=== PATIENT | female | born 1945 | race Two or more races ===

== ENCOUNTER 2023-06-29 08:32 | Inpatient (IN) | payer OTHER ==
[2023-06-27 15:49] VITALS: BMI 33.9
[2023-06-29] MEDS ORDERED: MECLIZINE HCL 25 MG TABLET (FP) PO PRN (11:43)
[2023-06-29] MEDS ORDERED: MIDAZOLAM HCL 2 MG/2 ML SINGLE DOSE VIAL ONE (11:58)
[2023-06-29] MEDS ORDERED: BUPIVACAINE LIPOSOME/PF (EXPAREL) 266 MG/20 ML VIAL ONE (11:58)
[2023-06-29] MEDS ORDERED: BUPIVACAINE HCL/PF 0.5% (5 MG/ML) 30 ML VIAL IJ ONE (11:58)
[2023-06-29] MEDS ORDERED: SODIUM CHLORIDE 0.9% P/F 10 ML VIAL IJ ONE (12:02)
[2023-06-29] MEDS ORDERED: SUCCINYLCHOLINE CHLORIDE 200 MG/10 ML SYRINGE ONE (12:20)
[2023-06-29] MEDS ORDERED: PROPOFOL 20 ML ONE ×3 (12:20→16:28)
[2023-06-29] MEDS ORDERED: HYDROmorphone HCL/PF 1 MG/ML VIAL ONE ×2 (14:08→15:09)
[2023-06-29] MEDS ORDERED: MAGNESIUM SULF 50% (8.12 MEQ/2 ML-1 GM VIAL) ONE (16:32)
[2023-06-29] MEDS ORDERED: LACTATED RINGERS SOLUTION 1,000 ML IV SCH ×2 (16:45→17:30)
[2023-06-29] MEDS ORDERED: MAGNESIUM HYDROX 2400MG/30ML ORAL SUSPENSION 30 ML CUP PO PRN (16:45)
[2023-06-29] MEDS ORDERED: ONDANSETRON 4 MG/2 ML VIAL IVPUSH PRN ×2 (16:45→17:28)
[2023-06-29] MEDS ORDERED: MAG HYDROX/AL HYDROX/SIMETH 30 ML UNIT-DOSE CUP PO PRN (16:45)
[2023-06-29] MEDS ORDERED: oxyCODONE HCL 5 MG TABLET PO PRN (17:30)
[2023-06-29] MEDS ORDERED: ACETAMINOPHEN 325 MG TABLET (FP) ONE (17:49)
[2023-06-29] MEDS: ACETAMINOPHEN 325 MG TABLET (FP) PO PRN (17:51)
[2023-06-29] MEDS: SENNOSIDES/DOCUSATE COMBO (SENNA PLUS) TABLET (UD) PO SCH (21:09)
[2023-06-29] MEDS: CELECOXIB 100 MG CAPSULE PO SCH (21:09)
[2023-06-29] MEDS: ASPIRIN COATED 81 MG TABLET.EC PO SCH (21:09)
[2023-06-29] MEDS: GABAPENTIN 300 MG CAPSULE PO SCH (21:10)
[2023-06-29] MEDS: CEFAZOLIN SODIUM 2 GM in DEXTROSE 5%-WATER 100 ML IVPB SCH (21:11)
[2023-06-29] MEDS ORDERED: ASPIRIN 325 MG TABLET PO SCH (22:00)
[2023-06-29] MEDS ORDERED: CELECOXIB 200 MG CAPSULE PO SCH (22:00)
[2023-06-30] MEDS: CEFAZOLIN SODIUM 2 GM in DEXTROSE 5%-WATER 100 ML IVPB SCH ×2 (02:57→08:42)
[2023-06-30 08:51] LABS: HEMATOCRIT 34.1 % (32.4-45.2); MCH 29.5 pg (25.7-33.7); MCHC 32.1 g/dl (32.0-36.0); MEAN CELL VOLUME 91.8 fl (80-96); MEAN PLT VOLUME 9.2 fl (7.5-11.1); PLATELET COUNT 237.7 10^3/uL (134-434); RBC 3.71 10^6/uL (3.60-5.2); RDW 16.2 % (11.6-15.6); WHITE BLOOD COUNT 9.5 10^3/uL (4.0-10.8)
[2023-06-30 09:20] LABS: BLOOD UREA NITROGEN 25.4 mg/dl (7-18); CALCIUM 8.2 mg/dl (8.5-10.1); POTASSIUM 3.1 mmol/L (3.5-5.1)
[2023-06-30] MEDS: SENNOSIDES/DOCUSATE COMBO (SENNA PLUS) TABLET (UD) PO SCH ×2 (09:35→21:49)
[2023-06-30] MEDS: ASPIRIN COATED 81 MG TABLET.EC PO SCH ×2 (09:35→21:49)
[2023-06-30] MEDS: GABAPENTIN 300 MG CAPSULE PO SCH ×2 (09:35→21:48)
[2023-06-30] MEDS: oxyCODONE HCL 5 MG TABLET PO PRN ×2 (09:35→21:48)
[2023-06-30] MEDS: CELECOXIB 100 MG CAPSULE PO SCH ×2 (09:35→21:49)
[2023-06-30] MEDS: PANTOPRAZOLE 40 MG TABLET PO SCH (09:36)
[2023-06-30] MEDS: ACETAMINOPHEN 325 MG TABLET (FP) PO PRN ×2 (09:36→21:49)
[2023-06-30] MEDS: CHLORTHALIDONE 25 MG TABLET PO SCH (09:52)
[2023-06-30] MEDS: LOSARTAN POTASSIUM 50 MG TABLET PO SCH (09:52)
[2023-06-30] MEDS ORDERED: POTASSIUM CHLORIDE ORAL LIQUID 20 MEQ/15 ML PO ONE (12:30)
[2023-07-01] MEDS: ACETAMINOPHEN 325 MG TABLET (FP) PO PRN ×2 (06:31→21:45)
[2023-07-01 07:51] LABS: HEMATOCRIT 30.5 % (32.4-45.2); HEMOGLOBIN 9.9 G/dL (10.7-15.3); MCH 29.7 pg (25.7-33.7); MCHC 32.4 g/dl (32.0-36.0); MEAN CELL VOLUME 91.5 fl (80-96); MEAN PLT VOLUME 8.8 fl (7.5-11.1); PLATELET COUNT 202.8 10^3/uL (134-434); RBC 3.33 10^6/uL (3.60-5.2); RDW 15.6 % (11.6-15.6); WHITE BLOOD COUNT 8.6 10^3/uL (4.0-10.8)
[2023-07-01] MEDS: SENNOSIDES/DOCUSATE COMBO (SENNA PLUS) TABLET (UD) PO SCH ×2 (09:42→21:49)
[2023-07-01] MEDS: PANTOPRAZOLE 40 MG TABLET PO SCH (09:42)
[2023-07-01] MEDS: ASPIRIN COATED 81 MG TABLET.EC PO SCH ×2 (09:42→21:47)
[2023-07-01] MEDS: CELECOXIB 100 MG CAPSULE PO SCH ×2 (09:42→21:45)
[2023-07-01] MEDS: oxyCODONE HCL 5 MG TABLET PO PRN ×2 (09:43→21:47)
[2023-07-01] MEDS: GABAPENTIN 300 MG CAPSULE PO SCH ×2 (10:52→21:45)
[2023-07-01] MEDS: CHLORTHALIDONE 25 MG TABLET PO SCH (10:52)
[2023-07-01] MEDS: LOSARTAN POTASSIUM 50 MG TABLET PO SCH (10:52)
[2023-07-02 02:09] VITALS: RESP 18
[2023-07-02] MEDS: oxyCODONE HCL 5 MG TABLET PO PRN ×2 (08:53→14:21)
[2023-07-02] MEDS: ACETAMINOPHEN 325 MG TABLET (FP) PO PRN ×2 (08:53→14:21)
[2023-07-02] MEDS: CELECOXIB 100 MG CAPSULE PO SCH (09:29)
[2023-07-02] MEDS: ASPIRIN COATED 81 MG TABLET.EC PO SCH (09:29)
[2023-07-02] MEDS: GABAPENTIN 300 MG CAPSULE PO SCH (09:29)
[2023-07-02] MEDS: SENNOSIDES/DOCUSATE COMBO (SENNA PLUS) TABLET (UD) PO SCH ×2 (09:29→09:33)
[2023-07-02] MEDS: PANTOPRAZOLE 40 MG TABLET PO SCH (09:29)
[2023-07-02] MEDS: CHLORTHALIDONE 25 MG TABLET PO SCH (09:33)
[2023-07-02] MEDS: LOSARTAN POTASSIUM 50 MG TABLET PO SCH (09:33)
[2023-07-02 14:23] VITALS: BP 141/55; PULSE 80; TEMP 98.4
== END 2023-07-02 15:00 | disposition home or self-care (01) | DRG 468 ==
LOC: FM/S 08:32
PROVIDERS: ADMIT Orthopaedic Surgery Orthopaedic Surgery of the Spine; ATTEND Orthopaedic Surgery Orthopaedic Surgery of the Spine
PROC: 0SRC0J9 Replacement of Right Knee Joint with Synthetic Substitute, Cemented, Open Approach (ICD-10-PCS; 2023-06-29)
PROC: 0SBC0ZZ Excision of Right Knee Joint, Open Approach (ICD-10-PCS; 2023-06-29)
PROC: 0MNN0ZZ Release Right Knee Bursa and Ligament, Open Approach (ICD-10-PCS; 2023-06-29)
PROC: 0SPC0JZ Removal of Synthetic Substitute from Right Knee Joint, Open Approach (ICD-10-PCS; principal; 2023-06-29 13:18)
DX: T84.89XA Other specified complication of internal orthopedic prosthetic devices, implants and grafts, initial encounter (principal); I10 Essential (primary) hypertension; E78.5 Hyperlipidemia, unspecified; Y83.8 Other surgical procedures as the cause of abnormal reaction of the patient, or of later complication, without mention of misadventure at the time of the procedure
CPT/HCPCS: 36415; 73560-TC-RT-FY; 80048; 85027; 86850; 86900; 86901; 88304-TC; 88305-TC; 88311-TC; 94760; 97010-GP; 97116-GP; 97162-GP; C1713; C1776

== ENCOUNTER 2023-08-21 00:09 | Day surgery (SDC) | payer OTHER ==
[2023-08-21] MEDS ORDERED: ONDANSETRON 4 MG/2 ML VIAL IVPUSH ONE (01:30)
[2023-08-21] MEDS ORDERED: ACETAMINOPHEN 1000 MG/100 ML BAG IVPB ONE (01:30)
[2023-08-21] MEDS ORDERED: FAMOTIDINE 20 MG/50 ML IVPB 20 MG/50 ML MG IVPB ONE ×2 (01:30→01:59)
[2023-08-21] MEDS ORDERED: MAG HYDROX/AL HYDROX/SIMETH 30 ML UNIT-DOSE CUP PO ONE (01:30)
[2023-08-21] MEDS ORDERED: ACETAMINOPHEN INJECTION 100 ML IVPB ONE (01:58)
[2023-08-21] MEDS ORDERED: ONDANSETRON 4 MG/2 ML VIAL ONE (01:59)
[2023-08-21] MEDS ORDERED: MAG HYDROX/AL HYDROX/SIMETH 30 ML UNIT-DOSE CUP ONE (01:59)
[2023-08-21 02:43] LABS: HEMATOCRIT 34.1 % (32.4-45.2); HEMOGLOBIN 11.1 GM/dL (10.7-15.3); MCH 27.6 pg (25.7-33.7); MCHC 32.5 g/dl (32.0-36.0); MEAN PLT VOLUME 8.5 fl (7.5-11.1); PLATELET COUNT 189 10^3/uL (134-434); RBC 4.01 M/mm3 (3.60-5.2); RDW 17.2 % (11.6-15.6); WHITE BLOOD COUNT 7.5 K/mm3 (4.0-10.0)
[2023-08-21 02:56] LABS: INR 1.05 (0.83-1.09); PROTHROMBIN TIME (PATIENT) 12.2 SEC (9.7-13.0)
[2023-08-21 02:58] LABS: ACTIVATED PTT 19.3 SECONDS (25.2-36.5)
[2023-08-21 03:05] LABS: POTASSIUM 4.4 mmol/L (3.5-5.1)
[2023-08-21 03:08] LABS: ALBUMIN 3.4 g/dl (3.4-5.0); BLOOD UREA NITROGEN 23.1 mg/dL (7-18); CALCIUM 9.1 mg/dL (8.5-10.1)
[2023-08-21 03:16] LABS: BILIRUBIN,TOTAL 0.7 mg/dL (0.2-1)
[2023-08-21] MEDS ORDERED: PIPERACILLIN/TAZOB 3.375 GM 3.375 GM in DEXTROSE 5%-WATER - 50 ML IVPB ONE (04:06)
[2023-08-21] MEDS ORDERED: PIPERACILLIN/TAZOB 3.375 GM 3.375 GM/50 ML BAG IVPB ONE (04:09)
[2023-08-21] MEDS ORDERED: LACTATED RINGERS SOLUTION 1,000 ML/1,000 ML INFUS.BAG IV SCH (06:15)
[2023-08-21] MEDS ORDERED: ACETAMINOPHEN 1000 MG/100 ML BAG IVPB PRN (10:21)
[2023-08-21] MEDS ORDERED: ONDANSETRON 4 MG/2 ML VIAL IVPUSH PRN (10:22)
[2023-08-21] MEDS: LACTATED RINGERS SOLUTION 1,000 ML/1,000 ML INFUS.BAG IV SCH (11:11)
[2023-08-21 13:16] VITALS: BMI 34.3
[2023-08-21] MEDS: AMPICILLIN NA/SULBACTAM NA 3 GM in SODIUM CHLORIDE 100 ML IVPB SCH (17:29)
[2023-08-22] MEDS: AMPICILLIN NA/SULBACTAM NA 3 GM in SODIUM CHLORIDE 100 ML IVPB SCH ×2 (01:43→09:57)
[2023-08-22 09:30] LABS: BASO % 1.6 % (0-2.0); EOS % 4.2 % (0-4.5); HEMATOCRIT 35.1 % (32.4-45.2); HEMOGLOBIN 11.1 GM/dL (10.7-15.3); LYMPH % 23.4 % (8-40); MCH 26.5 pg (25.7-33.7); MCHC 31.6 g/dl (32.0-36.0); MEAN CELL VOLUME 83.9 fl (80-96); MEAN PLT VOLUME 8.1 fl (7.5-11.1); MONO % 7.4 % (3.8-10.2); NEUT % 63.4 % (42.8-82.8); PLATELET COUNT 310 10^3/uL (134-434); RBC 4.18 M/mm3 (3.60-5.2); RDW 17.4 % (11.6-15.6); WHITE BLOOD COUNT 6.7 K/mm3 (4.0-10.0)
[2023-08-22 09:57] LABS: POTASSIUM 4.3 mmol/L (3.5-5.1)
[2023-08-22] MEDS: LACTATED RINGERS SOLUTION 1,000 ML/1,000 ML INFUS.BAG IV SCH ×2 (09:58→15:28)
[2023-08-22] MEDS ORDERED: LOSARTAN POTASSIUM 25 MG TABLET PO SCH (10:00)
[2023-08-22 10:13] LABS: CALCIUM 9.3 mg/dL (8.5-10.1)
[2023-08-22 10:14] LABS: ALBUMIN 3.2 g/dl (3.4-5.0); BLOOD UREA NITROGEN 18.2 mg/dL (7-18)
[2023-08-22 10:18] LABS: BILIRUBIN,TOTAL 0.6 mg/dL (0.2-1); TOT PROT 6.8 g/dl (6.4-8.2)
[2023-08-22] MEDS ORDERED: BUPIVACAINE HCL/PF 0.5% (5MG/ML) 10 ML VIAL ONE (11:14)
[2023-08-22] MEDS ORDERED: BUPIVACAINE HCL/PF 0.25% (2.5MG/ML) 10 ML VIAL ONE (11:39)
[2023-08-22] MEDS ORDERED: oxyCODONE HCL 5 MG TABLET PO PRN ×4 (12:09→14:23)
[2023-08-22] MEDS ORDERED: PROMETHAZINE HCL 25 MG/1 ML VIAL IVPB PRN ×2 (12:09→14:23)
[2023-08-22] MEDS ORDERED: BUPIVACAINE HCL/PF 0.25% (2.5MG/ML) 10 ML VIAL IJ ONE ×3 (12:11→13:08)
[2023-08-22] MEDS ORDERED: LACTATED RINGERS SOLUTION 1,000 ML IV SCH ×2 (12:15→14:23)
[2023-08-22] MEDS ORDERED: PROPOFOL 20 ML ONE (12:26)
[2023-08-22] MEDS ORDERED: KETOROLAC TROMETHAMINE 30 MG/1 ML VIAL ONE (12:27)
[2023-08-22] MEDS ORDERED: LIDOCAINE HCL/PF 2% SDV 5ML VIAL ONE (12:27)
[2023-08-22] MEDS ORDERED: ONDANSETRON 4 MG/2 ML VIAL ONE (12:27)
[2023-08-22] MEDS ORDERED: LIDOCAINE HCL 4% TOPICAL SOLN (50 ML/BOTTLE) ONE (12:27)
[2023-08-22] MEDS ORDERED: ROCURONIUM BROMIDE 50 MG/5 ML SYRINGE ONE ×2 (12:27→13:40)
[2023-08-22] MEDS ORDERED: MIDAZOLAM HCL 2 MG/2 ML SINGLE DOSE VIAL ONE (12:27)
[2023-08-22] MEDS ORDERED: FENTANYL CITRATE/PF 50 MCG/ML VIAL ONE ×3 (12:27→15:20)
[2023-08-22] MEDS ORDERED: DEXAMETHASONE SOD PHOSPHATE 4 MG/1 ML VIAL ONE (12:27)
[2023-08-22] MEDS ORDERED: SEVOFLURANE 250 ML BTL ONE (12:28)
[2023-08-22] MEDS ORDERED: ESMOLOL HCL 100,000 MCG/10 ML VIAL ONE (13:34)
[2023-08-22] MEDS ORDERED: LABETALOL HCL 20 MG/4 ML VIAL ONE (13:35)
[2023-08-22] MEDS ORDERED: ONDANSETRON 4 MG/2 ML VIAL IVPUSH PRN (14:23)
[2023-08-22] MEDS ORDERED: ACETAMINOPHEN INJECTION 100 ML IVPB ONE (14:34)
[2023-08-22] MEDS: ACETAMINOPHEN 1000 MG/100 ML BAG IVPB SCH ×2 (14:39→21:41)
[2023-08-22 18:52] VITALS: RESP 18
[2023-08-23] MEDS: LACTATED RINGERS SOLUTION 1,000 ML/1,000 ML INFUS.BAG IV SCH (00:36)
[2023-08-23] MEDS: ACETAMINOPHEN 1000 MG/100 ML BAG IVPB SCH ×2 (03:49→08:45)
[2023-08-23] MEDS ORDERED: ACETAMINOPHEN 325 MG TABLET (FP) PO SCH (09:00)
[2023-08-23 09:01] LABS: BASO % 0.5 % (0-2.0); HEMATOCRIT 33.4 % (32.4-45.2); HEMOGLOBIN 10.9 GM/dL (10.7-15.3); LYMPH % 14.3 % (8-40); MCH 27.2 pg (25.7-33.7); MCHC 32.7 g/dl (32.0-36.0); MEAN CELL VOLUME 83.2 fl (80-96); MEAN PLT VOLUME 8.1 fl (7.5-11.1); MONO % 5.5 % (3.8-10.2); NEUT % 79.7 % (42.8-82.8); PLATELET COUNT 307 10^3/uL (134-434); RBC 4.01 M/mm3 (3.60-5.2); RDW 17.2 % (11.6-15.6); WHITE BLOOD COUNT 8.1 K/mm3 (4.0-10.0)
[2023-08-23 09:13] LABS: POTASSIUM 4.4 mmol/L (3.5-5.1)
[2023-08-23 09:16] LABS: CALCIUM 8.7 mg/dL (8.5-10.1)
[2023-08-23 09:17] LABS: ALBUMIN 3.1 g/dl (3.4-5.0)
[2023-08-23 09:20] LABS: CREATININE 1.2 mg/dL (0.55-1.3)
[2023-08-23 09:22] LABS: TOT PROT 6.6 g/dl (6.4-8.2)
[2023-08-23 09:23] LABS: BILIRUBIN,TOTAL 0.4 mg/dL (0.2-1)
[2023-08-23] MEDS ORDERED: LOSARTAN POTASSIUM 25 MG TABLET PO SCH (10:00)
[2023-08-23 14:07] VITALS: BP 149/97; PULSE 80; TEMP 98.2
== END 2023-08-23 14:16 | disposition home or self-care (01) ==
LOC: JER 00:09 → UNDOADMOB 09:11 → JERBED 09:11 → INTOOBSV 09:11 → UNDOADMOB 10:20 → JERBED 10:20 → J5S 12:52 → JASUSAT 08-23 11:27 → J5S 08-23 11:40 → JASUSAT 08-23 14:16
PROVIDERS: ATTEND Internal Medicine
PROC: 0FT44ZZ Resection of Gallbladder, Percutaneous Endoscopic Approach (ICD-10-PCS; principal; 2023-08-23)
DX: K80.00 Calculus of gallbladder with acute cholecystitis without obstruction (principal)
CPT/HCPCS: 36415; 74177-TC; 76705-TC; 80053; 83690; 84484; 85025; 85027; 85610; 85730; 93005; 93010; 94760; 99285-25; Q9967

== ENCOUNTER 2024-03-23 19:04 | Emergency (ER) | payer OTHER ==
[2024-03-23 19:09] VITALS: BP 150/76; PULSE 76; RESP 18; TEMP 98.2; BMI 33.9
[2024-03-23 19:56] LABS: EPI CELLS 5 /uL (0-25.1); HYALINE CASTS 0 /uL (0-3.1); PH,URINE 6.5 (5.0-8.0); URINE APPEARANCE CLEAR; URINE BACTERIA 28 /uL (0-1359); URINE BILIRUBIN NEGATIVE (NEGATIVE); URINE COLOR YELLOW; URINE GLUCOSE (UA) NEGATIVE (NEGATIVE); URINE KETONE NEGATIVE (NEGATIVE); URINE LEUK ESTERASE NEGATIVE (NEGATIVE); URINE NITRITE NEGATIVE (NEGATIVE); URINE PROTEIN NEGATIVE (NEGATIVE); URINE RBC 14 /uL (0-23.9); URINE UROBILINOGEN 0.2 mg/dL (0.2-1.0); URINE WBC 4 /uL (0-25.8)
[2024-03-23 20:29] LABS: EOS % 4.6 % (0-4.5); HEMATOCRIT 37.1 % (32.4-45.2); HEMOGLOBIN 12.7 GM/dL (10.7-15.3); LYMPH % 29.5 % (8-40); MCH 29.7 pg (25.7-33.7); MCHC 34.1 g/dl (32.0-36.0); MEAN CELL VOLUME 87.1 fl (80-96); MEAN PLT VOLUME 7.8 fl (7.5-11.1); MONO % 8.5 % (3.8-10.2); NEUT % 56.4 % (42.8-82.8); PLATELET COUNT 230 10^3/uL (134-434); RBC 4.27 M/mm3 (3.60-5.2); RDW 15.7 % (11.6-15.6); WHITE BLOOD COUNT 8.1 K/mm3 (4.0-10.0)
[2024-03-23 20:41] LABS: INR 1.3 (0.83-1.09); PROTHROMBIN TIME (PATIENT) 14.6 SEC (9.7-13.0)
[2024-03-23 20:43] LABS: ACTIVATED PTT 33.8 SECONDS (25.2-36.5)
[2024-03-23 20:46] LABS: POTASSIUM 3.3 mmol/L (3.5-5.1)
[2024-03-23 20:48] LABS: CALCIUM 8.6 mg/dL (8.5-10.1)
[2024-03-23 20:49] LABS: ALBUMIN 3.3 g/dl (3.4-5.0); BLOOD UREA NITROGEN 32.3 mg/dL (7-18); MAGNESIUM 1.7 mg/dL (1.8-2.4)
[2024-03-23 20:52] LABS: CREATININE 1.1 mg/dL (0.55-1.3); PHOSPHOROUS 3.6 mg/dL (2.5-4.9)
[2024-03-23 20:53] LABS: TOT PROT 6.8 g/dl (6.4-8.2)
[2024-03-23 20:54] LABS: BILIRUBIN,TOTAL 0.3 mg/dL (0.2-1)
[2024-03-23] MEDS ORDERED: POTASSIUM CHLORIDE ORAL LIQUID 20 MEQ/15 ML ONE (21:03)
[2024-03-23] MEDS ORDERED: MAGNESIUM 1GM/D5W - 1 GM/100 ML IVPB IVPB ONE (21:04)
[2024-03-23] MEDS: POTASSIUM CHLORIDE ORAL LIQUID 20 MEQ/15 ML PO ONE (21:17)
[2024-03-23] MEDS: MAGNESIUM SULF 50% (8.12 MEQ/2 ML-1 GM VIAL) IVPB ONE (21:17)
== END 2024-03-23 22:31 | disposition home or self-care (01) ==
LOC: JER 19:04
PROC: 3E033GC Introduction of Other Therapeutic Substance into Peripheral Vein, Percutaneous Approach (ICD-10-PCS; principal; 2024-03-23)
DX: M79.89 Other specified soft tissue disorders (principal); E87.6 Hypokalemia; T88.7XXA Unspecified adverse effect of drug or medicament, initial encounter
CPT/HCPCS: 36415; 80053; 81003; 83735; 84100; 85025; 85610; 85730; 87086; 93005; 93010; 99284-25

== ENCOUNTER 2024-04-10 14:44 | Emergency (ER) | payer OTHER ==
[2024-04-10 14:51] VITALS: RESP 16; TEMP 97.6; BMI 32.3
[2024-04-10 16:33] LABS: BASO % 1.3 % (0-2.0); EOS % 5.4 % (0-4.5); HEMATOCRIT 39.7 % (32.4-45.2); HEMOGLOBIN 13.2 GM/dL (10.7-15.3); LYMPH % 31.6 % (8-40); MCH 29.1 pg (25.7-33.7); MCHC 33.1 g/dl (32.0-36.0); MEAN CELL VOLUME 87.7 fl (80-96); MEAN PLT VOLUME 7.8 fl (7.5-11.1); MONO % 8.8 % (3.8-10.2); NEUT % 52.9 % (42.8-82.8); PLATELET COUNT 268 10^3/uL (134-434); RBC 4.53 M/mm3 (3.60-5.2); RDW 16.1 % (11.6-15.6); WHITE BLOOD COUNT 6.8 K/mm3 (4.0-10.0)
[2024-04-10 17:00] LABS: POTASSIUM 4.5 mmol/L (3.5-5.1)
[2024-04-10 17:01] LABS: CALCIUM 9.4 mg/dL (8.5-10.1)
[2024-04-10 17:02] LABS: ALBUMIN 3.6 g/dl (3.4-5.0); BLOOD UREA NITROGEN 19.5 mg/dL (7-18)
[2024-04-10 17:05] LABS: CREATININE 0.9 mg/dL (0.55-1.3)
[2024-04-10 17:07] LABS: BILIRUBIN,TOTAL 0.3 mg/dL (0.2-1); TOT PROT 7.2 g/dl (6.4-8.2)
[2024-04-10 20:18] VITALS: BP 142/74; PULSE 66
== END 2024-04-10 21:56 | disposition home or self-care (01) ==
LOC: JER 14:44
DX: R60.0 Localized edema (principal)
CPT/HCPCS: 36415; 71045-TC-FY; 80053; 85025; 93005; 93010; 93970-TC; 99284-25